=== PATIENT | female | born 1980 | race Caucasian/White ===

== ENCOUNTER 2018-05-28 09:12 | Outpatient (CLI) | payer MEDICARE ==
[~2018-05-28] VITALS: Ht 167.6 cm; Wt 124.5 kg
[~2018-05-28 09:12] MED LIST: LEVEMIR100 U/M1 SC; PERCOCET 5-3251 TAB PO
[2018-05-28 09:44] VITALS: BP 105/66; Ht 167.6 cm; Wt 124.5 kg
== END 2018-05-28 11:50 | disposition home or self-care (01) ==
LOC: D.OPS 09:12
DX: D50.9 Iron deficiency anemia, unspecified (principal); Z01.812 Encounter for preprocedural laboratory examination

== ENCOUNTER 2018-06-04 09:23 | Outpatient (CLI) | payer MEDICARE ==
[~2018-06-04] VITALS: Ht 167.6 cm; Wt 122.7 kg
[2018-06-04 09:54] VITALS: BP 129/71; Ht 167.6 cm; Wt 122.7 kg
== END 2018-06-04 11:24 | disposition home or self-care (01) ==
LOC: D.OPS 09:23
DX: D50.9 Iron deficiency anemia, unspecified (principal)

== ENCOUNTER → 2018-07-14 11:56 | Outpatient (CLI) | payer MEDICARE ==
[2018-06-04 09:54] VITALS: BMI 43.6
== END | disposition home or self-care (01) ==
LOC: D.LDO 11:56
DX: O24.913 Unspecified diabetes mellitus in pregnancy, third trimester (principal); Z3A.33 33 weeks gestation of pregnancy

== ENCOUNTER → 2018-07-18 19:38 | Outpatient (CLI) | payer MEDICARE ==
[2018-06-04 09:54] VITALS: BMI 43.6
[2018-07-18 20:08] LABS: APPEARANCE CLEAR (CLEAR); BILIRUBIN 1+ (NEGATIVE); COLOR YELLOW (YELLOW); GLUCOSE 1000 mg/dL (NEGATIVE); KETONE NEGATIVE (NEGATIVE); NITRITE NEGATIVE (NEGATIVE); PROTEIN NEGATIVE (NEGATIVE)
[2018-07-18 20:09] LABS: BACTERIA MODERATE /hpf (NONE SEEN); EPITHELIAL CELLS 0-5 /hpf (0-5); RED CELLS - URINE 0-5 /hpf (0-5)
[2018-07-18 20:21] LABS: UDS - AMPHET NEGATIVE QUAL (NEGATIVE); UDS - BARB NEGATIVE QUAL (NEGATIVE); UDS - BENZO NEGATIVE QUAL (NEGATIVE); UDS - COCAINE NEGATIVE QUAL (NEGATIVE); UDS - OPIATE NEGATIVE QUAL (NEGATIVE); UDS - PCP NEGATIVE QUAL (NEGATIVE); UDS - THC NEGATIVE QUAL (NEGATIVE)
== END | disposition home or self-care (01) ==
LOC: D.LDO 19:38
PROVIDERS: Obstetrics & Gynecology
DX: R10.9 Unspecified abdominal pain (principal)

== ENCOUNTER → 2018-07-21 13:19 | Outpatient (CLI) | payer MEDICARE ==
[2018-06-04 09:54] VITALS: BMI 43.6
== END | disposition home or self-care (01) ==
LOC: D.LDO 13:19
DX: O24.913 Unspecified diabetes mellitus in pregnancy, third trimester (principal); Z3A.34 34 weeks gestation of pregnancy

== ENCOUNTER → 2018-07-23 10:10 | Outpatient (CLI) | payer MEDICARE ==
[2018-06-04 09:54] VITALS: BMI 43.6
== END | disposition home or self-care (01) ==
LOC: D.LDO 10:10
DX: O24.919 Unspecified diabetes mellitus in pregnancy, unspecified trimester (principal); Z3A.00 Weeks of gestation of pregnancy not specified

== ENCOUNTER → 2018-07-28 18:17 | Outpatient (CLI) | payer MEDICARE ==
[2018-06-04 09:54] VITALS: BMI 43.6
== END | disposition home or self-care (01) ==
LOC: D.LDO 18:17
DX: O24.913 Unspecified diabetes mellitus in pregnancy, third trimester (principal); Z3A.35 35 weeks gestation of pregnancy

== ENCOUNTER → 2018-07-31 14:39 | Outpatient (CLI) | payer MEDICARE, MEDICAID ==
[2018-06-04 09:54] VITALS: BMI 43.6
== END | disposition home or self-care (01) ==
LOC: D.LDO 14:39
DX: O26.893 Other specified pregnancy related conditions, third trimester (principal); Z3A.35 35 weeks gestation of pregnancy

== ENCOUNTER → 2018-08-04 12:38 | Outpatient (CLI) | payer MEDICARE, MEDICAID ==
[2018-06-04 09:54] VITALS: BMI 43.6
== END | disposition home or self-care (01) ==
LOC: D.LDO 12:38
DX: O24.913 Unspecified diabetes mellitus in pregnancy, third trimester (principal); Z3A.36 36 weeks gestation of pregnancy

== ENCOUNTER → 2018-08-05 16:13 | Outpatient (CLI) | payer MEDICARE, MEDICAID ==
[2018-06-04 09:54] VITALS: BMI 43.6
[2018-08-05 17:23] LABS: APPEARANCE CLEAR (CLEAR); COLOR YELLOW (YELLOW); GLUCOSE 1000 mg/dL (NEGATIVE); KETONE NEGATIVE (NEGATIVE); NITRITE NEGATIVE (NEGATIVE); PROTEIN TRACE mg/dL (NEGATIVE); SPECIFIC GRAVITY 1.015 (1.005-1.020); UROBILINOGEN NORMAL (NORMAL)
[2018-08-05 17:24] LABS: BILIRUBIN NEGATIVE (NEGATIVE)
[2018-08-05 17:33] LABS: BACTERIA MODERATE /hpf (NONE SEEN); EPITHELIAL CELLS 0-5 /hpf (0-5); RED CELLS - URINE 0-5 /hpf (0-5); WHITE CELLS - URINE 25-50 /hpf (0-5)
== END | disposition home or self-care (01) ==
LOC: D.LDO 16:13
PROVIDERS: Obstetrics & Gynecology
DX: O26.899 Other specified pregnancy related conditions, unspecified trimester (principal); Z3A.00 Weeks of gestation of pregnancy not specified

== ENCOUNTER → 2018-08-07 08:57 | Outpatient (CLI) | payer MEDICARE, MEDICAID ==
[2018-06-04 09:54] VITALS: BMI 43.6
== END | disposition home or self-care (01) ==
LOC: D.LDO 08:57
DX: O24.913 Unspecified diabetes mellitus in pregnancy, third trimester (principal); Z3A.37 37 weeks gestation of pregnancy

== ENCOUNTER → 2018-08-11 13:22 | Outpatient (CLI) | payer MEDICARE, MEDICAID ==
[2018-06-04 09:54] VITALS: BMI 43.6
== END | disposition home or self-care (01) ==
LOC: D.LDO 13:22
DX: O24.913 Unspecified diabetes mellitus in pregnancy, third trimester (principal); Z3A.37 37 weeks gestation of pregnancy

== ENCOUNTER → 2018-08-14 09:34 | Outpatient (CLI) | payer MEDICARE, MEDICAID ==
[2018-06-04 09:54] VITALS: BMI 43.6
[~2018-08-14 09:34] MED LIST changes: +FOLIC ACID1 MG PO; +HUMALOG MI100 UNITS/ SQ; +PRENAVITE1 TAB PO
== END | disposition home or self-care (01) ==
LOC: D.LDO 09:34
DX: O24.913 Unspecified diabetes mellitus in pregnancy, third trimester (principal); Z3A.38 38 weeks gestation of pregnancy

== ENCOUNTER 2018-08-15 15:48 | Inpatient (IN) | payer MEDICARE, MEDICAID ==
[~2018-08-15] VITALS: Ht 167.6 cm; Wt 129.3 kg
[2018-08-15] VITALS (12 sets, daily range): BP systolic 146–192; BP diastolic 68–81
[~2018-08-15 15:48] MED LIST changes: -FOLIC ACID1 MG PO; -HUMALOG MI100 UNITS/ SQ; -PRENAVITE1 TAB PO
[2018-08-15 16:23] LABS: APPEARANCE CLOUDY (CLEAR); BILIRUBIN 1+ (NEGATIVE); COLOR AMBER (YELLOW); GLUCOSE 100 mg/dL (NEGATIVE); KETONE NEGATIVE (NEGATIVE); NITRITE NEGATIVE (NEGATIVE); PROTEIN NEGATIVE (NEGATIVE); SPECIFIC GRAVITY 1.015 (1.005-1.020)
[2018-08-15 16:24] LABS: RED CELLS - URINE 0-5 /hpf (0-5)
[2018-08-15 16:25] LABS: BACTERIA FEW /hpf (NONE SEEN)
[2018-08-15 17:14] LABS: BASOPHILS 0.3 % (0-2); EOSINOPHILS 0.9 % (0-7); HEMATOCRIT 28.5 % (36.0-48.0); HEMOGLOBIN 8.4 g/dL (12-16); IMMATURE GRANULOCYTES 0.1 % (0-5); LYMPHOCYTES 19.7 % (15-50); MCHC 29.5 g/dL (31.0-37.0); MEAN PLATELET VOLUME 8.5 fL (7.4-10.4); MONOCYTES 5.2 % (2-11); NEUTROPHILS 73.8 % (40-80); PLATELET COUNT 228 10x3/uL (130-400); RBC 4.45 10x6/uL (4.00-5.40); WBC 8.8 10x3/uL (4.8-10.8)
[2018-08-15 17:15] LABS: MCH 18.9 pg (26.0-34.0)
[2018-08-15 17:28] LABS: ALBUMIN 2.1 g/dL (3.4-5.0); ALKALINE PHOSPHATASE 135 U/L (46-116); ALT (SGPT) 18 U/L (10-68); BILIRUBIN - TOTAL 0.18 mg/dL (0.2-1.3); CALC OSMOLALITY 275 mosm/kg (275-300); CALCIUM 7.7 mg/dL (8.5-10.1); CARBON DIOXIDE 21.8 mmol/L (21.0-32.0); CHLORIDE - SERUM 105 mmol/L (98-107); CREATININE - SERUM 0.7 mg/dL (0.6-1.3); GLUCOSE 91 mg/dL (74-106); POTASSIUM - SERUM 3.6 mmol/L (3.5-5.1); SODIUM 138 mmol/L (136-145); UREA NITROGEN 13 mg/dL (7-18); eGFR NON AFRICAN AMERICAN > 90 mL/min (90-120)
[2018-08-15 19:34] LABS: APPEARANCE CLEAR (CLEAR); BILIRUBIN 1+ (NEGATIVE); COLOR DK YELLOW (YELLOW); GLUCOSE 50 mg/dL (NEGATIVE); KETONE NEGATIVE (NEGATIVE); NITRITE NEGATIVE (NEGATIVE); PROTEIN NEGATIVE (NEGATIVE)
[2018-08-15 19:37] LABS: BACTERIA FEW /hpf (NONE SEEN); EPITHELIAL CELLS 0-5 /hpf (0-5); RED CELLS - URINE 0-5 /hpf (0-5); WHITE CELLS - URINE 0-5 /hpf (0-5)
[2018-08-15 21:52] LABS: BASOPHILS 0.1 % (0-2); EOSINOPHILS 0.1 % (0-7); HEMATOCRIT 35.4 % (36.0-48.0); HEMOGLOBIN 10.9 g/dL (12-16); IMMATURE GRANULOCYTES 0.2 % (0-5); LYMPHOCYTES 6.5 % (15-50); MCH 21.2 pg (26.0-34.0); MCHC 30.8 g/dL (31.0-37.0); MCV 68.7 fL (80.0-100.0); MEAN PLATELET VOLUME 8.9 fL (7.4-10.4); MONOCYTES 3.4 % (2-11); NEUTROPHILS 89.7 % (40-80); PLATELET COUNT 221 10x3/uL (130-400); RBC 5.15 10x6/uL (4.00-5.40); RDW 20.8 % (11.5-14.5); WBC 16.5 10x3/uL (4.8-10.8)
[2018-08-15 22:10] LABS: ALKALINE PHOSPHATASE 141 U/L (46-116); ALT (SGPT) 18 U/L (10-68); BILIRUBIN - DIRECT 0.23 mg/dL (0.00-0.30); BILIRUBIN - INDIRECT 0.62 mg/dL (0.00-1.00); BILIRUBIN - TOTAL 0.85 mg/dL (0.2-1.3); CALC OSMOLALITY 276 mosm/kg (275-300); CALCIUM 7.6 mg/dL (8.5-10.1); CARBON DIOXIDE 22.3 mmol/L (21.0-32.0); CHLORIDE - SERUM 105 mmol/L (98-107); CREATININE - SERUM 0.6 mg/dL (0.6-1.3); GLUCOSE 118 mg/dL (74-106); POTASSIUM - SERUM 4.2 mmol/L (3.5-5.1); PROTEIN - SERUM 6.6 g/dL (6.4-8.2); SODIUM 138 mmol/L (136-145); UREA NITROGEN 12 mg/dL (7-18); eGFR NON AFRICAN AMERICAN > 90 mL/min (90-120)
[2018-08-16] VITALS (18 sets, daily range): BP systolic 114–153; BP diastolic 55–70; Ht 167.6 cm; Wt 129.3 kg
[2018-08-16] MEDS ORDERED: FOLIC ACID1 MG PO (00:48)
[2018-08-16] MEDS ORDERED: HUMALOG MI100 UNITS/ SQ (00:54)
[2018-08-16] MEDS ORDERED: PRENAVITE1 TAB PO (00:54)
[2018-08-16 07:59] LABS: BASOPHILS 0.1 % (0-2); EOSINOPHILS 0.3 % (0-7); HEMATOCRIT 31.1 % (36.0-48.0); HEMOGLOBIN 9.7 g/dL (12-16); IMMATURE GRANULOCYTES 0.3 % (0-5); LYMPHOCYTES 12.7 % (15-50); MCH 21.1 pg (26.0-34.0); MCHC 31.2 g/dL (31.0-37.0); MCV 67.6 fL (80.0-100.0); MEAN PLATELET VOLUME 8.8 fL (7.4-10.4); NEUTROPHILS 79.6 % (40-80); PLATELET COUNT 183 10x3/uL (130-400); WBC 14.5 10x3/uL (4.8-10.8)
[2018-08-17 05:31] VITALS: BP 134/62
[2018-08-17 08:17] VITALS: BP 180/72
[2018-08-17 08:55] VITALS: BP 137/63
[2018-08-17] MEDS ORDERED: IBUPROFEN600 MG PO (11:45)
[2018-08-17] MEDS ORDERED: NORCO 10-325 TA1 TAB PO (11:45)
[2018-08-17] MEDS ORDERED: NORMODYNE / TR100 MG PO (11:46)
[2018-08-17] MEDS ORDERED: GLUCOPHAGE500 MG PO (11:47)
[2018-08-17] MEDS ORDERED: LEXAPRO10 MG PO (11:58)
[2018-08-19 03:11] LABS: RAPID PLASMA REAGIN Non Reactive (Non Reactive)
== END 2018-08-17 13:12 | disposition home or self-care (01) | DRG 788 ==
LOC: D.LDO 15:48 → D.LD 18:10 → D.SDCHOLD 19:03 → D.LD 19:04
PROVIDERS: Obstetrics & Gynecology
PROC: 10D00Z1 Extraction of Products of Conception, Low, Open Approach (ICD-10-PCS; principal; 2018-08-16)
DX: O34.211 Maternal care for low transverse scar from previous cesarean delivery (principal); O76 Abnormality in fetal heart rate and rhythm complicating labor and delivery; Z3A.38 38 weeks gestation of pregnancy; Z37.0 Single live birth; O69.81X0 Labor and delivery complicated by cord around neck, without compression, not applicable or unspecified; O69.2XX0 Labor and delivery complicated by other cord entanglement, with compression, not applicable or unspecified; O12.14 Gestational proteinuria, complicating childbirth; O99.344 Other mental disorders complicating childbirth

== ENCOUNTER → 2019-09-15 12:58 | Outpatient (CLI) | payer MEDICARE, MEDICAID ==
[2018-08-16 01:35] VITALS: BMI 46.1
[~2019-09-15 12:58] MED LIST changes: +FOLIC ACID1 MG PO; +GLUCOPHAGE500 MG PO; +HUMALOG MI100 UNITS/ SQ; +IBUPROFEN600 MG PO; +LEXAPRO10 MG PO; +NORCO 10-325 TA1 TAB PO; +NORMODYNE / TR100 MG PO; +PRENAVITE1 TAB PO
[2019-09-15 14:22] LABS: HEMATOCRIT 26.6 % (36.0-48.0)
[2019-09-15 14:23] LABS: HEMOGLOBIN 7.4 g/dL (12-16)
== END | disposition home or self-care (01) ==
LOC: D.LDO 12:58
PROVIDERS: ATTEND Obstetrics & Gynecology
DX: O26.899 Other specified pregnancy related conditions, unspecified trimester (principal); R06.02 Shortness of breath; R42 Dizziness and giddiness; D64.9 Anemia, unspecified

== ENCOUNTER → 2019-10-26 12:30 | Outpatient (CLI) | payer MEDICARE, MEDICAID ==
[2018-08-16 01:35] VITALS: BMI 46.1
== END | disposition home or self-care (01) ==
LOC: D.LDO 12:30
PROVIDERS: ATTEND Obstetrics & Gynecology
DX: O26.899 Other specified pregnancy related conditions, unspecified trimester (principal); Z3A.00 Weeks of gestation of pregnancy not specified

== ENCOUNTER 2019-11-03 12:58 | Outpatient (CLI) | payer MEDICARE, MEDICAID ==
[2018-08-16 01:35] VITALS: BMI 46.1
== END 2019-11-03 13:30 | disposition home or self-care (01) ==
LOC: D.LDO 12:58
PROVIDERS: ATTEND Obstetrics & Gynecology
DX: O26.899 Other specified pregnancy related conditions, unspecified trimester (principal); D50.9 Iron deficiency anemia, unspecified

== ENCOUNTER 2021-01-18 09:33 | Outpatient (CLI) | payer MEDICARE, MEDICAID ==
[~2021-01-18] VITALS: Ht 170.2 cm; Wt 123.2 kg
[2021-01-18 12:37] VITALS: Ht 170.2 cm; Wt 123.2 kg
--- NOTE | 2021-01-18 13:25 | NUR ---
1309 BLOOD TRANSFUSION STARTED AT 75 ML/HR ER IV PUMP IN RIGHT AC. 1324 TRANSFUSION RATE INCREASED TO 250 ML/HR. PT WITHOUT CO SITTING UP, WATCHING TV
--- NOTE | 2021-01-18 14:59 | NUR ---
1425 IST UNIT PRBCS COMPLETE. PATIENT STILL WITHOUT CO. CONTINUES SITTING UP WATCHING TV. 1435 2ND UNIT PRBCS STARTED AT 75 ML/HR. LASIX GIVEN ORDERED 1450 RATE INCREASED TO 250 ML/HR PER INFUSION PUMP.
--- NOTE | 2021-01-18 16:09 | NUR ---
1556 2ND UNIT COMPLETED. AB TOLERATED TRANSFUSIONS WELL. LINE FLUSHED WITH SALINE AND IV REMOVED WITH CATH INTACT. DISCHARGE INSTRUCTION REVIEWED WITH PATIENT, NO QUESTIONS. DISCHARGED AMBULATORY
== END 2021-01-18 16:10 | disposition home or self-care (01) ==
LOC: D.OPS 09:33
PROVIDERS: ATTEND Internal Medicine Hematology & Oncology
DX: D50.9 Iron deficiency anemia, unspecified (principal)